=== PATIENT | male | born 1980 ===

== ENCOUNTER 2021-11-26 14:34 | Emergency (ER) | payer OTHER ==
[2021-11-26 16:00] LABS: BLOOD UREA NITROGEN,BUN 18 mg/dL (7.0-18.0); CARBON DIOXIDE,CO2 26.8 mmol/L (21.0-32.0); CHLORIDE,CL 102 mmol/L (98-107); GLUCOSE RANDOM 93 mg/dL (74-106); POTASSIUM,K 4.1 mmol/L (3.5-5.1); SODIUM,NA 140 mmol/L (136-148)
[2021-11-26] MEDS ORDERED: Iopamidol 755 MG/ML 500 ML Multipack Bottle IVPUSH ONE (16:59)
== END 2021-11-26 17:07 | disposition home or self-care (01) ==
LOC: MW.ED 14:34
DX: R04.2 Hemoptysis (principal); Z88.8 Allergy status to other drugs, medicaments and biological substances
CPT/HCPCS: 36415; 71275; 80053; 84484; 85025; 86140; 99284; Q9967